=== PATIENT | female | born 1945 | race Caucasian/White ===

== ENCOUNTER 2017-01-08 20:17 | Emergency (ER) | payer MEDICARE, BC ==
[2017-01-08 20:21] VITALS: BP 142/76; PULSE 78; RESP 20; TEMP 98.2; O2SAT 95
--- NOTE | 2017-01-08 20:42 | PD ---
HPI Chief Complaint: Musculoskeletal Complaint Time Seen by Provider: 20:31 Travel History International Travel<30 days: No Contact w/Intl Traveler<30days: No Traveled to known affect area: No History of Present Illness HPI The patient is a 71-year-old female with who fell off of her horse today at approximately 7:45 PM. She tucked and rolled with the fall and complains of pain in her right lateral buttocks and right shoulder. She denies any numbness , weakness or radiation of pain down her right arm or right leg. She denies any C-spine, T-spine or LS-spine injury. She denies any head trauma and there is no loss of consciousness. PFSH Social History Tobacco Use: No Allergies-Medications (Allergen,Severity, Reaction): Coded Allergies: No Known Allergies (Unverified , 01/08/17) Reported Meds & Prescriptions Reported Meds & Active Scripts Active Ultracet (Tramadol-Acetaminophen) 37.5-325 mg Tab 2 Tab PO Q4H PRN Review of Systems Except as stated in HPI: all other systems reviewed are Neg Physical Exam Narrative GENERAL: Well-nourished, well-developed patient in moderate apparent distress with her right shoulder pain and right buttocks pain. SKIN: Focused skin assessment warm/dry. HEAD: Normocephalic. EYES: No scleral icterus. No injection or drainage. NECK: Supple, trachea midline. No JVD or lymphadenopathy. CARDIOVASCULAR: Regular rate and rhythm without murmurs, gallops, or rubs. RESPIRATORY: Breath sounds equal bilaterally. No accessory muscle use. GASTROINTESTINAL: Abdomen soft, non-tender, nondistended. MUSCULOSKELETAL: No cyanosis, or edema. There is tenderness and swelling over the right anterior shoulder. She has full passive range of motion but when she uses her muscles and hurts significantly. Good capillary refill and pinprick is present distally on the right hand. The right lateral pelvis shows tenderness but no deformity is present. There is no pelvic looking present. Movements of the right hip do not cause any pain. BACK: Nontender without obvious deformity. No CVA tenderness. Data Data Last Documented VS Vital Signs Date Time Temp Pulse Resp B/P Pulse Ox O2 Delivery O2 Flow Rate FiO2 01/08/17 20:34 78 18 01/08/17 20:21 98.2 142/76 95 Orders Pelvis, Ap Only (Routine) (01/08/17 20:31) Shoulder, Complete (>2vws) (01/08/17 20:31) Splint Or Brace Apply/Monitor (01/08/17 21:20) Ice/Cold Pack (01/08/17 21:27) MDM Medical Decision Making Medical Screen Exam Complete: Yes Emergency Medical Condition: Yes Medical Record Reviewed: Yes Interpretation(s) X-rays of the pelvis are negative for fracture or dislocation. X-rays of the right shoulder are negative for fracture or dislocation. Differential Diagnosis Contusion shoulder, contusion pelvis, dislocation shoulder, fracture shoulder, fracture pelvis Narrative Course The patient has a contusion of the right shoulder and right pelvis. Plan: The patient will be given a sling, ice pack and Ultram. She should follow -up with her primary care physician if problems. Diagnosis Primary Impression: Contusion of right shoulder Additional Impression: Contusion of right hip Additional Instructions: Rest and time and the icepack her about all you can do for this. If you have continued problems follow-up with her primary care physician. Do not drink alcohol or drive on the Ultram. Med/Other Pt SpecificInfo: Prescription(s) given Scripts Tramadol-Acetaminophen (Ultracet)37.5-325 mg Tab2 Tab PO Q4H PRN (PAIN) #21 TAB Ref 0 Prov:Alexx Diaz MD 01/08/17 Disposition: 01 DISCHARGE HOME Condition: Stable Alexx Diaz MD January 08, 2017 20:42
--- NOTE | 2017-01-08 21:17 | RADHPO ---
EXAM DATE/TIME: 01/08/2017 20:40 [facility] COMPARISON: No previous studies available for comparison. INDICATIONS : Pelvis pain after fall from horse today MEDICAL HISTORY : None. SURGICAL HISTORY : None. ENCOUNTER: Initial ACUITY: 1 day PAIN SCORE: 3/10 LOCATION: Bilateral Pelvis FINDINGS: A single frontal view of the pelvis demonstrates no evidence of fracture. The bony pelvic ring is in tact. Bony mineralization is normal. The soft tissues are intact. Degenerative disc change and scol iosis and the lower lumbar spine. CONCLUSION: Negative trauma study. Juancho Domingo MD on January 08, 2017 at 21:14 Board Certified Radiologist. This report was verified electronically.
--- NOTE | 2017-01-08 21:18 | RADHPO ---
EXAM DATE/TIME: 01/08/2017 20:43 [facility] COMPARISON: No previous studies available for comparison. INDICATIONS : Right shoulder pain after fall from horse today MEDICAL HISTORY : None. SURGICAL HISTORY : None. ENCOUNTER: Initial ACUITY: 1 day PAIN SCORE: 8/10 LOCATION: Right entire shoulder FINDINGS: Multiple view examination of the right shoulder demonstrates no evidence of fracture or dislocation. The glenohumeral and acromioclavicular joints are maintained. There is normal range of motion betwe en internal and external rotation. Bony mineralization is normal. CONCLUSION: Negative trauma study. Juancho Domingo MD on January 08, 2017 at 21:15 Board Certified Radiologist. This report was verified electronically.
[2017-01-08] MEDS ORDERED: ULTR37.55 PO (21:26)
[2017-01-08 21:41] VITALS: BP 140/76; PULSE 78; RESP 18; O2SAT 99
== END 2017-01-08 22:14 | disposition home or self-care (01) ==
LOC: PHED 20:17
DX: S40.011A Contusion of right shoulder, initial encounter (principal); S70.01XA Contusion of right hip, initial encounter; V80.010A Animal-rider injured by fall from or being thrown from horse in noncollision accident, initial encounter; Y93.52 Activity, horseback riding; Y92.9 Unspecified place or not applicable; Y99.8 Other external cause status
CPT/HCPCS: 72170; 73030; 99283